=== PATIENT | male | born 1965 | race Caucasian/White ===

== ENCOUNTER → 2021-11-29 | Outpatient (CLI) | payer OTHER | END | disposition home or self-care (01) | LOC: LAB SHORT 08:34 | DX: L30.8 Other specified dermatitis (principal) | CPT/HCPCS: 88305; 88312; 88313 ==

== ENCOUNTER → 2022-10-24 | Outpatient (CLI) | payer OTHER | END | disposition home or self-care (01) | LOC: LAB SHORT 13:33 | DX: L08.0 Pyoderma (principal) | CPT/HCPCS: 87070; 87077; 87147; 87186; 87205 ==

== ENCOUNTER 2024-02-29 21:02 | Emergency (ER) | payer OTHER ==
[~2024-02-29] VITALS: Ht 180.3 cm; Wt 86.2 kg
[2024-02-29 21:08] VITALS: BP 166/111
[2024-02-29] MEDS ORDERED: Naprosyn500 MG PO (21:40)
[2024-02-29] MEDS ORDERED: Lidocaine 4% 1 Patch TOP ONE (21:40)
[2024-02-29] MEDS ORDERED: LIDO700A20 TOP (22:11)
== END 2024-02-29 22:03 | disposition home or self-care (01) ==
LOC: ER 21:02
DX: M54.50 Low back pain, unspecified (principal); G89.29 Other chronic pain
CPT/HCPCS: 99283; A9270

== ENCOUNTER 2024-05-31 03:22 | Emergency (ER) | payer OTHER ==
[~2024-05-31] VITALS: Ht 180.3 cm; Wt 94.8 kg
[~2024-05-31 03:22] MED LIST: LIDO700A20 TOP; Naprosyn500 MG PO
[2024-05-31] MEDS ORDERED: ESCI10 PO (03:30)
[2024-05-31] MEDS ORDERED: MONT10T PO (03:30)
[2024-05-31] MEDS ORDERED: TRAZ150T57 PO (03:30)
[2024-05-31] MEDS ORDERED: IBUP800 PO (03:31)
[2024-05-31] MEDS ORDERED: TRAM50 PO (03:31)
[2024-05-31] MEDS ORDERED: Methocarbamol750 MG PO (03:32)
[2024-05-31] MEDS ORDERED: HYDHCL25 PO (03:32)
[2024-05-31] MEDS ORDERED: TAMSULOSIN HCL0.4 M1 PO (03:32)
[2024-05-31] MEDS ORDERED: NAPROXEN500 MG PO (03:33)
[2024-05-31 03:46] LABS: BASOPHILS ABSOLUTE AUTO 0.05 K/mm3 (0.00-0.23); BASOPHILS PERCENT AUTO 1 % (0-2); EOSINOPHILS ABSOLUTE AUTO 0.07 K/mm3 (0.00-0.68); EOSINOPHILS PERCENT AUTO 1 % (0-6); Hematocrit 39.4 % (37.0-53.0); Hemoglobin 13.7 g/dL (13.5-17.5); IMMATURE GRAN ABSOLUTE AUTO 0.04 K/mm3 (0.00-0.10); IMMATURE GRAN PERCENT AUTO 0 % (0-1); LYMPHOCYTES ABSOLUTE AUTO 1.38 K/mm3 (0.84-5.20); LYMPHOCYTES PERCENT AUTO 16 % (21-46); MONOCYTES ABSOLUTE AUTO 0.58 K/mm3 (0.16-1.47); MONOCYTES PERCENT AUTO 7 % (4-13); Mean Corpuscular HGB 29.5 pg (26.0-34.0); Mean Corpuscular HGB Conc 34.8 g/dL (31.5-36.5); Mean Corpuscular Volume 85 fL (80-100); Mean Platelet Volume 8.3 fL (9.1-12.4); NEUTROPHILS ABSOLUTE AUTO 6.81 K/mm3 (1.96-9.15); NEUTROPHILS PERCENT AUTO 76 % (41-73); Platelet Count 237 K/mm3 (150-400); RDW Coefficient Variation 11.9 % (11.7-14.2); RDW Standard Deviation 36.5 fL (35.1-46.3); Red Blood Cell Count 4.64 M/mm3 (4.30-5.90); White Blood Cell Count 8.93 K/mm3 (4.00-11.30)
[2024-05-31 03:58] LABS: Albumin, Blood 4.3 g/dL (3.4-5.0); Albumin/Globulin Ratio 1.3 (0.8-1.8); Bilirubin, Total 0.5 mg/dL (0.1-1.0); Bun/Creatinine Ratio 23.6 (12.0-20.0); Calcium, Blood 8.7 mg/dL (8.5-10.1); Creatinine, Blood 0.8 mg/dL (0.60-1.20); Globulin, Blood 3.2 g/dL (2.2-4.0); Magnesium, Blood 2.1 mg/dL (1.6-2.4); Potassium, Blood 3.9 mmol/L (3.5-5.5); Total Protein, Blood 7.5 g/dL (6.4-8.2)
[2024-05-31] MEDS ORDERED: Acetaminophen 500 MG Tab PO ONE (04:10)
[2024-05-31] MEDS ORDERED: Metoclopramide HCl 5MG / ML 2ML Vial IV ONE (06:20)
[2024-05-31] MEDS ORDERED: HyDROXyzine HCl 25 MG Tab PO ONE (06:25)
[2024-05-31] MEDS ORDERED: NS 1,000 ML IV SCH (06:25)
[2024-05-31] MEDS ORDERED: Ketorolac Tromethamine 15mg Vial IV ONE (06:25)
[2024-05-31] MEDS ORDERED: METO10 PO (08:04)
[2024-05-31 08:19] VITALS: BP 176/102
== END 2024-05-31 08:20 | disposition home or self-care (01) ==
LOC: ER 03:22
PROVIDERS: Student in an Organized Health Care Education/Training Program
DX: R11.2 Nausea with vomiting, unspecified (principal); R51.9 Headache, unspecified; E87.1 Hypo-osmolality and hyponatremia; E86.0 Dehydration; Z88.1 Allergy status to other antibiotic agents; Z79.899 Other long term (current) drug therapy
CPT/HCPCS: 80053; 83690; 83735; 85025; 93005; 93010; 96361; 96374; 96375; 99284-25; A9270; J1885; J2765; J7030

== ENCOUNTER → 2024-06-10 | Outpatient (CLI) | payer OTHER ==
[~2024-06-10] MED LIST changes: +ESCI10 PO; +HYDHCL25 PO; +IBUP800 PO; +METO10 PO; +MONT10T PO; +Methocarbamol750 MG PO; +NAPROXEN500 MG PO; +TAMSULOSIN HCL0.4 M1 PO; +TRAM50 PO; +TRAZ150T57 PO
[2024-06-10 14:36] LABS: Hemoglobin 13.3 g/dL (13.5-17.5); Mean Corpuscular HGB 29.5 pg (26.0-34.0); Mean Corpuscular HGB Conc 34.1 g/dL (31.5-36.5); Mean Corpuscular Volume 87 fL (80-100); Mean Platelet Volume 8.3 fL (9.1-12.4); Platelet Count 266 K/mm3 (150-400); RDW Coefficient Variation 11.9 % (11.7-14.2); Red Blood Cell Count 4.51 M/mm3 (4.30-5.90)
[2024-06-10 14:57] LABS: BASOPHILS PERCENT MAN 0 % (0-2); EOSINOPHILS ABSOLUTE MAN 0.17 K/mm3 (0.00-0.68); EOSINOPHILS PERCENT MAN 3 % (0-6); LYMPHOCYTES ABSOLUTE MAN 1.45 K/mm3 (0.84-5.20); LYMPHOCYTES PERCENT MAN 25 % (21-46); MONOCYTES ABSOLUTE MAN 0.69 K/mm3 (0.16-1.47); MONOCYTES PERCENT MAN 12 % (4-13); NEUTROPHILS ABSOLUTE MAN 3.48 K/mm3 (1.96-9.15); SEG NEUTROPHILS PERCENT MAN 60 % (41-73); TOTAL CELLS COUNTED 100
[2024-06-10 15:16] LABS: Albumin, Blood 4.3 g/dL (3.4-5.0); Albumin/Globulin Ratio 1.3 (0.8-1.8); Bilirubin, Total 0.4 mg/dL (0.1-1.0); Calcium, Blood 8.6 mg/dL (8.5-10.1); Creatinine, Blood 0.88 mg/dL (0.60-1.20); Globulin, Blood 3.2 g/dL (2.2-4.0); Phosphorus, Blood 2.8 mg/dL (2.5-4.9); Potassium, Blood 4.7 mmol/L (3.5-5.5); Total Protein, Blood 7.5 g/dL (6.4-8.2)
[2024-06-10 17:17] LABS: Thyroid Stimulating Hormone 0.508 uIU/mL (0.360-4.800)
== END ==
LOC: LAB SHORT 13:17 → LAB 13:17
PROVIDERS: Nurse Practitioner
DX: E87.1 Hypo-osmolality and hyponatremia (principal); R06.02 Shortness of breath; R53.82 Chronic fatigue, unspecified; R42 Dizziness and giddiness
CPT/HCPCS: 80053; 83036; 84100; 84443; 85007; 85027

== ENCOUNTER → 2024-07-26 | Outpatient (CLI) | payer OTHER ==
[2024-07-26 16:07] LABS: Albumin, Blood 4.3 g/dL (3.4-5.0); Albumin/Globulin Ratio 1.3 (0.8-1.8); Bilirubin, Total 0.4 mg/dL (0.1-1.0); Bun/Creatinine Ratio 18.5 (12.0-20.0); Calcium, Blood 9.2 mg/dL (8.5-10.1); Creatinine, Blood 0.92 mg/dL (0.60-1.20); Globulin, Blood 3.2 g/dL (2.2-4.0); Potassium, Blood 4.4 mmol/L (3.5-5.5); Total Protein, Blood 7.5 g/dL (6.4-8.2)
== END ==
LOC: LAB SHORT 13:51
PROVIDERS: Physician Assistant
DX: E87.1 Hypo-osmolality and hyponatremia (principal)
CPT/HCPCS: 80053

== ENCOUNTER 2024-10-31 00:26 | Emergency (ER) | payer OTHER ==
[~2024-10-31] VITALS: Ht 170.2 cm; Wt 72.6 kg
[2024-10-31 00:33] VITALS: BP 157/94
[2024-10-31] MEDS ORDERED: Diazepam 2 MG Tab PO ONE (01:00)
== END 2024-10-31 01:25 | disposition home or self-care (01) ==
LOC: ER 00:26
DX: F41.9 Anxiety disorder, unspecified (principal); Z79.899 Other long term (current) drug therapy; Z88.1 Allergy status to other antibiotic agents
CPT/HCPCS: 99282; A9270